=== PATIENT | female | born 1955 | race Caucasian/White ===

== ENCOUNTER 2019-09-26 21:26 | Inpatient (IN) | payer MEDICARE, OTHER ==
[~2019-09-26] VITALS: Ht 167.6 cm; Wt 74.4 kg
[2019-09-26] MEDS ORDERED: MAG HYDROX/AL HYDROX/SIMETH 30 ML UDC PO PRN (22:30)
[2019-09-26] MEDS ORDERED: MAGNESIUM HYDROXIDE 30 ML UDC PO PRN (22:30)
[2019-09-26] MEDS ORDERED: ACETAMINOPHEN 325 MG TABLET PO PRN (22:30)
[2019-09-26] MEDS ORDERED: LORAZEPAM 0.5 MG TABLET PO PRN (22:30)
[2019-09-26] MEDS ORDERED: BLOOD SUGAR DIAGNOSTIC 1 EACH STRIP IN ONE (23:00)
[2019-09-27 01:02] VITALS: BP 138/62
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
[2019-09-27 07:16] LABS: BASOPHILS % (AUTO) 0.5 % (0.0-2.0); EOSINOPHILS % (AUTO) 1.6 % (0.0-6.0); HEMATOCRIT 38 % (33-45); HEMOGLOBIN 12.1 g/dL (11.5-14.8); LYMPHOCYTES # (AUTO) 2.8 /CMM (0.8-4.8); MEAN CORPUSCULAR HGB CONC 32 g/dl (31.0-36.0); MEAN CORPUSCULAR VOLUME 78 fL (82-100); MONOCYTES # (AUTO) 0.4 /CMM (0.1-1.30); MONOCYTES % (AUTO) 4.8 % (2.0-12.0); NEUTROPHILS # (AUTO) 4.5 /CMM (1.8-8.9); NEUTROPHILS % (AUTO) 57.1 % (43.0-81.0); PLATELET COUNT (AUTO) 240 /CMM (150-450); RED BLOOD CELL COUNT(AUTO) 4.85 MIL/uL (4.0-5.2); WHITE BLOOD COUNT (AUTO) 7.8 K/uL (4.3-11.0)
[2019-09-27 07:35] LABS: CALCIUM, SERUM 9.1 mg/dL (8.5-10.1); CREATININE 0.8 mg/dL (0.6-1.3); POTASSIUM 4.1 mmol/L (3.5-5.1)
[2019-09-27 08:00] VITALS: BP 155/74
[2019-09-27] MEDS ORDERED: ATOR20TA PO (08:42)
[2019-09-27] MEDS ORDERED: QUET300T5 PO (08:42)
[2019-09-27] MEDS ORDERED: TRAZ-252 PO (08:42)
[2019-09-27] MEDS ORDERED: ARIP5TAB59 PO (08:42)
[2019-09-27] MEDS ORDERED: ARIP400S3 IM (08:42)
[2019-09-27] MEDS ORDERED: MELA1TAB27 PO (09:06)
[2019-09-27] MEDS ORDERED: PANT40TA4 PO (09:06)
[2019-09-27] MEDS ORDERED: MULT-1119 PO (09:06)
[2019-09-27] MEDS: PANTOPRAZOLE 40 MG TABLET.DR PO SCH (10:23)
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
--- NOTE | 2019-09-27 12:00 | NUR ---
[facility] CONTACT: SW contacted [facility] food service agent with the [facility] [phone] and left a voicemail for callback.
--- NOTE | 2019-09-27 12:29 | NUR ---
INITIAL DISCHARGE PLAN: Per pts caregiver Daksha [phone] pts current living conditions are not livable. She states that pts social services assistant at the [facility] is attempting to fix and clean pts home to make it livable but does not know how long that will take. Pt may need SNF placement contingent if [facility] is able to clean and fix pts home. SW will help form a safe and proper discharge plan in collaboration with .
--- NOTE | 2019-09-27 15:07 | NUR ---
GROUP NOTE: SW attempted to engage pt in group therapy on this present day to discuss "social supports." Pt was in the shower and was unable to participate on this present day.
[2019-09-27 16:00] VITALS: BP 144/79
[2019-09-27] MEDS: ATORVASTATIN 10 MG TABLET PO SCH (17:14)
--- NOTE | 2019-09-27 19:10 | NUR ---
GPS RN NOTES RECEIVED PT IN BED AWAKE, NO S/S OR COMPLAINTS OF PAIN AT THIS TIME. PT IS DISPLAYING NO S/S OF APPARENT DISTRESS AT THIS TIME. PT BREATHING IS UNLABORED WITH EQUAL RISE AND FALL OF THE CHEST. PT A/O X2-3 ON ROOM AIR SATING 97%. PT COMPLIANT WITH MEDICATION, DISORGANIZED, RESPONDING TO INTERNAL STIMULI, ANXIOUS, AND COOPERATIVE. PT DENIES SUICIDE IDEATIONS AND HOMICIDAL IDEATIONS AT THIS TIME. PT ASSISTED WITH TURNING AND REPOSITIONING Q2 HR AND PRN FOR COMFORT AND CIRCULATION. PT HAS NO NEEDS AT THIS TIME. PT EDUCATED ON THE USE OF THE CALL AGUILAR. PT BED SIDE RAILS UP X2 FOR SAFETY, BED IS LOCKED AND LOW. WILL CONTINUE TO MONITOR Q15 MIN WITH THE HELP OF STAFF TO MAINTAIN SAFETY.
[2019-09-27] MEDS: ARIPIPRAZOLE 5 MG TABLET PO SCH (19:39)
[2019-09-27 20:00] VITALS: BP 149/75
[2019-09-27] MEDS: TRAZODONE 50 MG TABLET PO SCH (21:06)
[2019-09-27] MEDS: QUETIAPINE FUMARATE 100 MG TABLET PO SCH (21:08)
[2019-09-28 08:00] VITALS: BP 161/94
[2019-09-28] MEDS: MULTIVIT W/MINERALS 1 TAB TABLET PO SCH (08:12)
[2019-09-28] MEDS: PANTOPRAZOLE 40 MG TABLET.DR PO SCH (08:12)
[2019-09-28] MEDS: ARIPIPRAZOLE 5 MG TABLET PO SCH (08:12)
[2019-09-28] MEDS ORDERED: QUETIAPINE FUMARATE PO SCH (09:00)
[2019-09-28] MEDS ORDERED: ATORVASTATIN 10 MG TABLET PO SCH (09:00)
[2019-09-28 16:00] VITALS: BP 141/65
[2019-09-28] MEDS: ATORVASTATIN 10 MG TABLET PO SCH (17:05)
[2019-09-28 19:54] VITALS: BP 140/67
[2019-09-28] MEDS: TRAZODONE 50 MG TABLET PO SCH (21:02)
[2019-09-28] MEDS: QUETIAPINE FUMARATE 100 MG TABLET PO SCH (21:02)
[2019-09-29 08:00] VITALS: BP 148/76
[2019-09-29] MEDS: PANTOPRAZOLE 40 MG TABLET.DR PO SCH (08:39)
[2019-09-29] MEDS: ARIPIPRAZOLE 5 MG TABLET PO SCH (08:39)
[2019-09-29] MEDS: MULTIVIT W/MINERALS 1 TAB TABLET PO SCH (08:39)
[2019-09-29 16:00] VITALS: BP 132/82
[2019-09-29] MEDS: ATORVASTATIN 10 MG TABLET PO SCH (17:20)
[2019-09-29 19:42] VITALS: BP 159/73
[2019-09-29 21:01] VITALS: BP 143/65
[2019-09-29] MEDS: TRAZODONE 50 MG TABLET PO SCH (21:03)
[2019-09-29] MEDS: QUETIAPINE FUMARATE 100 MG TABLET PO SCH (21:03)
--- NOTE | 2019-09-30 | NUR ---
GPS RN NOTES: UPON DOING ROUNDS, PT AWAKE. ASKED PT HOW SHE IS FEELING PT STATED, "FINE." PT UNABLE TO GO TO SLEEP. OFFERED RESTORIL PRN ORDERED. PT REFUSED. PT STATED, "THAT STUFF WILL WORK ON ME."' PT REFUSED X3. CONTINUE TO MONITOR.
[2019-09-30] MEDS: PANTOPRAZOLE 40 MG TABLET.DR PO SCH (07:42)
[2019-09-30 08:00] VITALS: BP 155/66
[2019-09-30] MEDS: MULTIVIT W/MINERALS 1 TAB TABLET PO SCH (08:00)
[2019-09-30] MEDS: ARIPIPRAZOLE 5 MG TABLET PO SCH (08:00)
--- NOTE | 2019-09-30 08:23 | NUR ---
[facility] CONTACT: KRISTIN received a call from Ara-pts procurement services manager with the [facility] [phone] confirming that pt cannot return home as her current housing conditions are not safe and sanitary. Ara stated [facility] is attempting to provide assistance to pt but it will take some time. Ara requested pt be placed in a short-term SNF near her home in the [facility]. KRISTIN stated that she would do her best to place pt near home but it was not a guarantee that pt will be accepted. Ara understood.
[2019-09-30 16:00] VITALS: BP 151/95
[2019-09-30] MEDS: ATORVASTATIN 10 MG TABLET PO SCH (17:09)
--- NOTE | 2019-09-30 17:52 | NUR ---
RN-CO: Noted patient is responding heavily to internal stimuli around 5PM. Easily irritated in the afternoon however she is compliant with medications. Patient refused anti anxiety.
[2019-09-30 20:29] VITALS: BP 161/73
[2019-09-30] MEDS: TRAZODONE 50 MG TABLET PO SCH (21:17)
[2019-09-30] MEDS: QUETIAPINE FUMARATE 100 MG TABLET PO SCH (21:17)
[2019-09-30 22:00] VITALS: BP 135/78
[2019-10-01] MEDS: PANTOPRAZOLE 40 MG TABLET.DR PO SCH (07:16)
[2019-10-01 08:00] VITALS: BP 127/72
--- NOTE | 2019-10-01 08:36 | NUR ---
[facility] CONTACT: SW received a voicemail from Arapts industrial gas servicer helper with the [facility] [phone] stating pts therapist Germaine Dove [phone] from the [facility] Address: [address] [place] [id number] is requesting pt be conserved.
[2019-10-01] MEDS: MULTIVIT W/MINERALS 1 TAB TABLET PO SCH (08:53)
[2019-10-01] MEDS: ARIPIPRAZOLE 5 MG TABLET PO SCH (08:54)
--- NOTE | 2019-10-01 08:57 | NUR ---
COLLATERAL CONTACT: KRISTIN contacted pts therapist Germaine Dove [phone] from the [facility] Address: [address] [place] [address] to inform her psychiatrist will not initiate conservatorship as this is pts first time hospitalized at this hospital and under his care. KRISTIN explained that in order to file for conservatorship the pt has to be hospitalized 3 consecutive times under the same psychiatrist within a year. KRISTIN advised Germaine to seek assistance from the [facility] and or pts psychiatrist at the [facility]. Germaine understood and stated she wishes to visit pt on this present day. KIRSTIN provided her with nurses station phone number so she can request visitation off visiting hours.
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
[2019-10-01 16:00] VITALS: BP 140/68
[2019-10-01] MEDS: QUETIAPINE FUMARATE 25 MG TABLET PO SCH (16:45)
--- NOTE | 2019-10-01 16:50 | NUR ---
RN NOTE- PT TOOK SEROQUEL AND I INFORMED HER THAT WE KNOW SHES SPITTING PILLS OUT. I MADE HER SWALLOW AND SHOW ME SHE HAD. INFORMED OF MEDICATION COMPLIANCE AND IMPORTANCE. PT VERBALIZED UNDERSTANDING
[2019-10-01] MEDS: ATORVASTATIN 10 MG TABLET PO SCH (17:26)
[2019-10-01 20:00] VITALS: BP 124/49
[2019-10-01] MEDS: TRAZODONE 50 MG TABLET PO SCH (22:03)
[2019-10-01] MEDS: QUETIAPINE FUMARATE 100 MG TABLET PO SCH (22:03)
[2019-10-02 08:00] VITALS: BP 136/82
[2019-10-02] MEDS: PANTOPRAZOLE 40 MG TABLET.DR PO SCH (08:24)
[2019-10-02] MEDS: QUETIAPINE FUMARATE 25 MG TABLET PO SCH ×2 (08:24→16:01)
[2019-10-02] MEDS: MULTIVIT W/MINERALS 1 TAB TABLET PO SCH (08:24)
[2019-10-02 16:00] VITALS: BP 146/68
[2019-10-02] MEDS: ATORVASTATIN 10 MG TABLET PO SCH (17:22)
[2019-10-02 20:00] VITALS: BP 143/71
[2019-10-02] MEDS: QUETIAPINE FUMARATE 100 MG TABLET PO SCH (21:33)
[2019-10-02] MEDS: TRAZODONE 50 MG TABLET PO SCH (21:33)
[2019-10-02] MEDS: TEMAZEPAM 7.5 MG CAPSULE PO PRN (21:37)
[2019-10-03 08:00] VITALS: BP 149/90
[2019-10-03] MEDS: QUETIAPINE FUMARATE 25 MG TABLET PO SCH ×2 (08:47→17:23)
[2019-10-03] MEDS: PANTOPRAZOLE 40 MG TABLET.DR PO SCH (08:47)
[2019-10-03] MEDS: MULTIVIT W/MINERALS 1 TAB TABLET PO SCH (08:47)
--- NOTE | 2019-10-03 09:33 | NUR ---
SNF REFERRAL: KRISTIN faxed SNF referrals to [facility] Address: [address] [place] [address] , [facility] Address: [address] [place] [address] , [facility] Address: [address] [place] [address] , and [facility] Address: [address] [place] [address] for review. Addendum: 10/03/19 at 0947 by GERONIMO FOSTER KRISTIN faxed referral to [facility] Address: [address] [place] [address] .
--- NOTE | 2019-10-03 11:43 | NUR ---
SNF REFERRAL: SW received a call from [facility] admissions clerk at [facility] Address: [address] [place] [address] stating pt has been accepted to the facility.
--- NOTE | 2019-10-03 11:44 | NUR ---
[facility] CONTACT: KRISTIN contacted Araelvis environmental services tech with the [facility] [phone] and informed her pt has been accepted to [facility] and she agreed with placement. KRISTIN stated that she will inform her once pt is scheduled for discharge.
--- NOTE | 2019-10-03 15:24 | NUR ---
Group Note: SW encouraged pt to participate in group on 10/03/19 at 2pm discussing discharge planning. Pt refused to participate and stated that she wanted to remain in her room. Pt appeared to be disorganized and confused. Pt did not appear to be appropriate for group. SW did inform the pt that her SW is in contact with the [facility] and that they are trying to place her in a half-way facility.
[2019-10-03 16:00] VITALS: BP 155/77
[2019-10-03] MEDS: ATORVASTATIN 10 MG TABLET PO SCH (17:23)
[2019-10-03 20:00] VITALS: BP 127/54
[2019-10-03] MEDS: TRAZODONE 50 MG TABLET PO SCH (21:06)
[2019-10-03] MEDS: QUETIAPINE FUMARATE 100 MG TABLET PO SCH (21:06)
[2019-10-04 07:14] LABS: BASOPHILS % (AUTO) 0.6 % (0.0-2.0); EOSINOPHILS % (AUTO) 2.5 % (0.0-6.0); HEMATOCRIT 38 % (33-45); HEMOGLOBIN 12.2 g/dL (11.5-14.8); LYMPHOCYTES # (AUTO) 2.2 /CMM (0.8-4.8); LYMPHOCYTES % (AUTO) 30.8 % (20.0-44.0); MEAN CORPUSCULAR HGB CONC 32 g/dl (31.0-36.0); MEAN CORPUSCULAR VOLUME 77 fL (82-100); MONOCYTES # (AUTO) 0.4 /CMM (0.1-1.30); MONOCYTES % (AUTO) 5.6 % (2.0-12.0); NEUTROPHILS # (AUTO) 4.4 /CMM (1.8-8.9); NEUTROPHILS % (AUTO) 60.5 % (43.0-81.0); PLATELET COUNT (AUTO) 191 /CMM (150-450); RED BLOOD CELL COUNT(AUTO) 4.95 MIL/uL (4.0-5.2); WHITE BLOOD COUNT (AUTO) 7.2 K/uL (4.3-11.0)
[2019-10-04] MEDS: PANTOPRAZOLE 40 MG TABLET.DR PO SCH (07:45)
[2019-10-04 07:59] VITALS: BP 157/66
[2019-10-04 08:02] LABS: ALBUMIN 3.2 g/dL (3.4-5.0); BILIRUBIN,TOTAL 0.2 mg/dL (0.2-1.0); CALCIUM, SERUM 8.9 mg/dL (8.5-10.1); CREATININE 0.8 mg/dL (0.6-1.3); PHOSPHORUS 3.5 mg/dL (2.5-4.9); TOTAL PROTEIN, SERUM 7.1 g/dL (6.4-8.2)
[2019-10-04] MEDS: QUETIAPINE FUMARATE 25 MG TABLET PO SCH ×2 (08:12→17:04)
[2019-10-04] MEDS: MULTIVIT W/MINERALS 1 TAB TABLET PO SCH (08:13)
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
[2019-10-04 15:59] VITALS: BP 165/79
[2019-10-04] MEDS: ATORVASTATIN 10 MG TABLET PO SCH (17:04)
[2019-10-04 20:24] VITALS: BP 143/66
[2019-10-04] MEDS: QUETIAPINE FUMARATE 100 MG TABLET PO SCH (21:17)
[2019-10-04] MEDS: TRAZODONE 50 MG TABLET PO SCH (21:17)
[2019-10-05 08:00] VITALS: BP 141/76
[2019-10-05] MEDS: QUETIAPINE FUMARATE 25 MG TABLET PO SCH ×2 (08:19→17:41)
[2019-10-05] MEDS: PANTOPRAZOLE 40 MG TABLET.DR PO SCH (08:19)
[2019-10-05] MEDS: MULTIVIT W/MINERALS 1 TAB TABLET PO SCH (08:19)
[2019-10-05 16:00] VITALS: BP 142/62
[2019-10-05] MEDS: ATORVASTATIN 10 MG TABLET PO SCH (18:11)
[2019-10-05 19:56] VITALS: BP 155/68
[2019-10-05] MEDS: QUETIAPINE FUMARATE 100 MG TABLET PO SCH (21:02)
[2019-10-05] MEDS: TRAZODONE 50 MG TABLET PO SCH (21:02)
[2019-10-06] MEDS: TEMAZEPAM 7.5 MG CAPSULE PO PRN ×2 (01:34→22:24)
[2019-10-06] MEDS: PANTOPRAZOLE 40 MG TABLET.DR PO SCH (07:41)
[2019-10-06 08:00] VITALS: BP 149/77
[2019-10-06] MEDS: QUETIAPINE FUMARATE 25 MG TABLET PO SCH ×2 (08:41→17:16)
[2019-10-06] MEDS: MULTIVIT W/MINERALS 1 TAB TABLET PO SCH (08:41)
[2019-10-06 16:00] VITALS: BP 157/70
[2019-10-06] MEDS: ATORVASTATIN 10 MG TABLET PO SCH (17:18)
[2019-10-06 20:27] VITALS: BP 145/78
[2019-10-06] MEDS: QUETIAPINE FUMARATE 100 MG TABLET PO SCH (21:42)
[2019-10-06] MEDS: TRAZODONE 50 MG TABLET PO SCH (21:43)
[2019-10-07] MEDS: PANTOPRAZOLE 40 MG TABLET.DR PO SCH (07:13)
--- NOTE | 2019-10-07 07:36 | NUR ---
refused skin check
[2019-10-07 08:00] VITALS: BP 140/90
[2019-10-07] MEDS: MULTIVIT W/MINERALS 1 TAB TABLET PO SCH (08:03)
[2019-10-07] MEDS: QUETIAPINE FUMARATE 25 MG TABLET PO SCH ×2 (08:03→17:09)
[2019-10-07 16:00] VITALS: BP 154/76
[2019-10-07] MEDS: ATORVASTATIN 10 MG TABLET PO SCH (17:08)
[2019-10-07 20:08] VITALS: BP 146/72
[2019-10-07] MEDS: TRAZODONE 50 MG TABLET PO SCH (21:31)
[2019-10-07] MEDS: QUETIAPINE FUMARATE 100 MG TABLET PO SCH (21:31)
[2019-10-08] MEDS: PANTOPRAZOLE 40 MG TABLET.DR PO SCH (07:45)
[2019-10-08 08:00] VITALS: BP 149/66
[2019-10-08] MEDS: MULTIVIT W/MINERALS 1 TAB TABLET PO SCH (08:24)
[2019-10-08] MEDS: QUETIAPINE FUMARATE 25 MG TABLET PO SCH (08:24)
--- NOTE | 2019-10-08 09:55 | NUR ---
DISCHARGE NOTE: Pt will be discharged at 12:30pm via [facility] to [facility] Address: [address] [place] [address] . [facility] [phone] has been notified and agrees with discharge date. Pts mood is euthymic with congruent affect. Pt denied visual/auditory hallucinations and denied suicidal/homicidal ideation. Pt will be under the care of Psychiatrist: Dr. Flory Chi Address: [address] [place] [address] and Resistor Tester: Dr. Storm Granger Address: [address] [place] [address] . The multidisciplinary exit care form was done, printed, signed, and given to the patient.
--- NOTE | 2019-10-08 13:09 | NUR ---
RN NOTE- DC NOTE- PT DC AT THIS TIME VIA GURNEY AND AMBULANCE TO [facility] IN [place]. VS STABLE, ALERT ORIENTED TO PERSON PLACE ONLY. DENIES SI HI AH VH AT TIME OF DC. PT BELONGINGS AND VALUABLES RETURNED TO PT AND SIGNED FOR. DC PAPERWORK AND AFTERCARE DISCUSSED W PT AND AMBULANCE STAFF. VERBALIZED UNDERSTANDING. ID [id number] REMOVED. REPORT CALLED TO FACILITY. ESCORTED OFF OF UNIT BY THIS RN.
== END 2019-10-08 13:10 | DRG 885 ==
LOC: GPS 21:26
PROVIDERS: ADMIT Psychiatry & Neurology Psychiatry; ATTEND Internal Medicine
DX: F29 Unspecified psychosis not due to a substance or known physiological condition (principal); F41.9 Anxiety disorder, unspecified; E66.9 Obesity, unspecified; E78.5 Hyperlipidemia, unspecified; F20.0 Paranoid schizophrenia; F32.9 Major depressive disorder, single episode, unspecified; G62.9 Polyneuropathy, unspecified; G89.29 Other chronic pain; M19.90 Unspecified osteoarthritis, unspecified site; Z95.0 Presence of cardiac pacemaker; Z73.6 Limitation of activities due to disability; R53.1 Weakness; Z68.26 Body mass index [BMI] 26.0-26.9, adult; R26.9 Unspecified abnormalities of gait and mobility; Z79.899 Other long term (current) drug therapy
CPT/HCPCS: 36415; 80048-TC; 80053-TC; 80061-TC; 83735-TC; 84100-TC; 85025-TC; 87081-TC; 97116-TC; 97530-TC